=== PATIENT | male | born 1990 | race Caucasian/White ===

== ENCOUNTER 2019-06-04 09:07 | Emergency (ER) | payer MEDICAID ==
[~2019-06-04] VITALS: Ht 172.7 cm; Wt 99.8 kg
[2019-06-04 09:18] VITALS: BP 151/90
--- NOTE | 2019-06-04 09:54 | NUR ---
Patient ambulated to bed 3 with family. RN evaluating patient at bedside.
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
[2019-06-04] MEDS ORDERED: KETOROLAC 60 MG/2 ML VIAL IM ONE (10:25)
--- NOTE | 2019-06-04 11:52 | NUR ---
Dr. Shaw is evaluating the patient at bedside.
[2019-06-04] MEDS ORDERED: MORPHINE SULFATE 4 MG/ML SYR IM ONE (11:55)
[2019-06-04 12:42] VITALS: BP 142/84
--- NOTE | 2019-06-04 12:42 | NUR ---
Patient discharged with v/s stable. Written and verbal after care instructions given and explained. Patient alert, oriented and verbalized understanding of instructions. Ambulatory with steady gait. All questions addressed prior to discharge. ID band removed. Patient advised to follow up with PMD. Rx of PREDNISONE,MOTRIN,NORCO given. Patient educated on indication of medication including possible reaction and side effects. Opportunity to ask questions provided and answered.
== END 2019-06-04 12:42 | disposition home or self-care (01) ==
LOC: MED 09:07
DX: K08.89 Other specified disorders of teeth and supporting structures (principal); Z98.890 Other specified postprocedural states
CPT/HCPCS: 96372; 99283; J1885; J2270

== ENCOUNTER 2019-08-26 21:02 | Emergency (ER) | payer OTHER, MEDICAID ==
[~2019-08-26] VITALS: Ht 172.7 cm; Wt 91.2 kg
[2019-08-26 21:06] VITALS: BP 114/68
--- NOTE | 2019-08-26 22:35 | NUR ---
PT AMBULATED TO BED 12
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
[2019-08-26] MEDS ORDERED: KETOROLAC 60 MG/2 ML VIAL IM ONE (22:55)
--- NOTE | 2019-08-26 23:21 | NUR ---
PT TAKEN TO XR VIA WHEELCHAIR.
--- NOTE | 2019-08-26 23:50 | NUR ---
PT RETURNED FROM XRAY VIA W/C
--- NOTE | 2019-08-26 23:59 | NUR ---
URINE SAMPLE COLLECTED AND SENT TO LAB
[2019-08-27 00:02] LABS: APPEARANCE,URINE CLEAR (CLEAR); BILIRUBIN,URINE 1+ (NEGATIVE); BLOOD, URINE NEGATIVE (NEGATIVE); COLOR,URINE YELLOW (YELLOW); LEUKOCYTE ESTERASE ,URINE NEGATIVE (NEGATIVE); NITRITE, URINE NEGATIVE (NEGATIVE); PH,URINE 7.5 (5.0-9.0); UGLUCOSE NEGATIVE (NEGATIVE)
--- NOTE | 2019-08-27 00:02 | NUR ---
PT REPORTS DECREASED PAIN FROM 6/10 TO 3/10 AND TOLERABLE. NO FURTHER NEEDCS AT THIS TIME. PT SITTING ON BED.
[2019-08-27 00:07] VITALS: BP 136/79
[2019-08-27 00:20] LABS: RBC,URINE 0-5 /HPF (0-5); WBC,URINE 0-5 /HPF (0-5)
--- NOTE | 2019-08-27 00:36 | NUR ---
pt taken to RAD via w/c
--- NOTE | 2019-08-27 01:10 | NUR ---
POSTERIOR LONG LEG SPLINT PLACED ON PT L LEG, WRAPPED WITH CHRISTINE WRAP. +CSM
--- NOTE | 2019-08-27 01:16 | NUR ---
palpable pedal pulses on left leg splint. <2 seconds LLE capillary refill. cms intact. pt tolerated well
--- NOTE | 2019-08-27 01:17 | NUR ---
dPatient discharged with v/s stable. Written and verbal after care instructions given and explained. Patient alert, oriented and verbalized understanding of instructions. Ambulatory with steady gait*. All questions addressed prior to discharge. ID band removed. Patient advised to follow up with PMD. Rx of motrin given. Patient educated on indication of medication including possible reaction and side effects. Opportunity to ask questions provided and answered.
== END 2019-08-27 01:28 | disposition home or self-care (01) ==
LOC: MED 21:02
DX: S82.832A Other fracture of upper and lower end of left fibula, initial encounter for closed fracture (principal); V89.2XXA Person injured in unspecified motor-vehicle accident, traffic, initial encounter; Y93.89 Activity, other specified; Y92.89 Other specified places as the place of occurrence of the external cause; Y99.8 Other external cause status
CPT/HCPCS: 29505; 71045; 72040; 72100; 73552; 73562; 81001; 96372; 99284; J1885; Q0092; 99283

== ENCOUNTER 2020-05-14 12:09 | Emergency (ER) | payer MEDICAID, SELFPAY ==
[~2020-05-14] VITALS: Ht 172.7 cm; Wt 83.9 kg
[2020-05-14 12:20] VITALS: BP 113/53
[2020-05-14] MEDS ORDERED: KETOROLAC 60 MG/2 ML VIAL IM ONE (12:30)
--- NOTE | 2020-05-14 12:38 | NUR ---
29 y/o male from home c/o body aches and subjective fever x 3 days. Pt states increased pain with movement and ambulation. Skin warm, dry, intact. Unknown covid contact. Denies cough/sob. Awake and alert. VSS
--- NOTE | 2020-05-14 12:50 | NUR ---
Covid swab collected and walked to lab
[2020-05-14 12:54] VITALS: BP 113/53
--- NOTE | 2020-05-16 14:00 | NUR ---
Covid results received from lab. Results = Positive. Hard copy requested from lab and placed in infection controls mailbox.
== END 2020-05-14 12:55 | disposition home or self-care (01) ==
LOC: MED 12:09
DX: B34.9 Viral infection, unspecified (principal); M79.10 Myalgia, unspecified site
CPT/HCPCS: 96372; 99283; J1885; U0003

== ENCOUNTER 2020-10-28 19:49 | Emergency (ER) | payer MEDICAID, SELFPAY ==
[~2020-10-28] VITALS: Ht 172.7 cm; Wt 81.6 kg
[2020-10-28 20:07] VITALS: BP 115/64
[2020-10-28 20:16] VITALS: BP 130/85
--- NOTE | 2020-10-28 23:06 | NUR ---
patient not in the lobby at this time; no response
--- NOTE | 2020-10-28 23:22 | NUR ---
pt. called; not in lobby; no response
--- NOTE | 2020-10-28 23:28 | NUR ---
PATIENT LEFT WITHOUT BEING SEEN BY DR. LOZANO. NO FURTHER CARE PROVIDED FOR PATIENT.
[2020-10-29] MEDS ORDERED: FAMO-92 PO (13:37)
[2020-10-29] MEDS ORDERED: PRED20TA5 PO (13:37)
[2020-10-29] MEDS ORDERED: [UNRECOGNIZED DRUG - CODE] TP (13:37)
== END 2020-10-28 23:12 | disposition left against medical advice (07) ==
LOC: MED 19:49
DX: R21 Rash and other nonspecific skin eruption (principal); Z53.21 Procedure and treatment not carried out due to patient leaving prior to being seen by health care provider

== ENCOUNTER 2020-10-29 12:23 | Emergency (ER) | payer MEDICAID, SELFPAY ==
[~2020-10-29] VITALS: Ht 172.7 cm; Wt 81.2 kg
[2020-10-29 12:28] VITALS: BP 109/63
[2020-10-29] MEDS ORDERED: PRED20TA5 PO (13:37)
[2020-10-29] MEDS ORDERED: FAMO-92 PO (13:37)
[2020-10-29] MEDS ORDERED: [UNRECOGNIZED DRUG - CODE] TP (13:37)
[2020-10-29 13:45] VITALS: BP 109/63
== END 2020-10-29 13:45 | disposition home or self-care (01) ==
LOC: MED 12:23
DX: R21 Rash and other nonspecific skin eruption (principal); F17.200 Nicotine dependence, unspecified, uncomplicated; Z71.6 Tobacco abuse counseling
CPT/HCPCS: 99283

== ENCOUNTER 2021-10-12 21:40 | Emergency (ER) | payer MEDICAID ==
[~2021-10-12] VITALS: Ht 172.7 cm; Wt 93.9 kg
[~2021-10-12 21:40] MED LIST: FAMO-92 PO; PRED20TA5 PO; [UNRECOGNIZED DRUG - CODE] TP
[2021-10-12 22:13] VITALS: BP 115/70
--- NOTE | 2021-10-13 00:15 | NUR ---
called first time- no show in lobby or outside.
--- NOTE | 2021-10-13 00:28 | NUR ---
Called second time- no show in lobby or outside.
--- NOTE | 2021-10-13 00:38 | NUR ---
PATIENT LEFT WITHOUT BEING SEEN BY DR. LOZANO. NO FURTHER CARE PROVIDED FOR PATIENT.
== END 2021-10-13 00:38 | disposition left against medical advice (07) ==
LOC: MED 21:40
DX: R07.81 Pleurodynia (principal); M25.572 Pain in left ankle and joints of left foot; M25.532 Pain in left wrist; R10.9 Unspecified abdominal pain; Z53.21 Procedure and treatment not carried out due to patient leaving prior to being seen by health care provider

== ENCOUNTER 2021-10-13 10:05 | Emergency (ER) | payer MEDICAID ==
[~2021-10-13] VITALS: Ht 172.7 cm; Wt 93.9 kg
[2021-10-13 10:18] VITALS: BP 122/86
--- NOTE | 2021-10-13 10:27 | NUR ---
PT AMB TO BED 8.
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
--- NOTE | 2021-10-13 10:43 | NUR ---
PT TO XRAY VIA WHEELCHAIR
--- NOTE | 2021-10-13 10:58 | NUR ---
PT BACK FROM XRAY
--- NOTE | 2021-10-13 11:15 | NUR ---
PENDING DISPO PAPERWORK
[2021-10-13 11:25] VITALS: BP 112/73
--- NOTE | 2021-10-13 11:25 | NUR ---
Patient discharged with v/s stable. Written and verbal after care instructions given and explained. Patient verbalized understanding. Ambulatory with steady gait. All questions addressed prior to discharge. Advised to follow up with PMD.
--- NOTE | 2021-10-13 11:26 | NUR ---
Chart checked and completed. The patient's care was reviewed and supervised by Kimberley Esteban RN.
== END 2021-10-13 11:25 | disposition home or self-care (01) ==
LOC: MED 10:05
DX: S93.402A Sprain of unspecified ligament of left ankle, initial encounter (principal); S20.212A Contusion of left front wall of thorax, initial encounter; S64.32XA Injury of digital nerve of left thumb, initial encounter; S64.31XA Injury of digital nerve of right thumb, initial encounter; S39.91XA Unspecified injury of abdomen, initial encounter; F12.90 Cannabis use, unspecified, uncomplicated; Z79.899 Other long term (current) drug therapy; Z98.890 Other specified postprocedural states; Y04.0XXA Assault by unarmed brawl or fight, initial encounter; Y93.89 Activity, other specified; Y92.89 Other specified places as the place of occurrence of the external cause; Y99.8 Other external cause status
CPT/HCPCS: 71101; 73610; 99284

== ENCOUNTER 2022-03-01 12:58 | Emergency (ER) | payer MEDICAID ==
[~2022-03-01] VITALS: Ht 175.3 cm; Wt 77.1 kg
[2022-03-01 13:07] VITALS: BP 135/86
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
[2022-03-01] MEDS ORDERED: BISM262T28 PO (15:25)
[2022-03-01] MEDS ORDERED: KETOROLAC 30 MG/ML VIAL IM ONE (15:25)
[2022-03-01] MEDS ORDERED: ONDA-188 PO (15:25)
[2022-03-01 16:02] VITALS: BP 124/70
== END 2022-03-01 16:03 | disposition home or self-care (01) ==
LOC: MED 12:58
DX: B34.9 Viral infection, unspecified (principal); Z20.822 Contact with and (suspected) exposure to COVID-19
CPT/HCPCS: 87426; 87804; 96372; 99283; J1885